=== PATIENT | male | born 2000 | race Caucasian/White ===

== ENCOUNTER 2019-01-21 12:14 | Inpatient (IN) ==
[2019-01-21 13:56] LABS: Basophils # (auto) 0.06 K/uL (0-0.2); Basophils % (auto) 0.4 %; Eosinophils # (auto) 0.02 K/uL (0-0.5); Eosinophils % (auto) 0.1 %; Hematocrit (blood only) 45.3 % (42-52); Hemoglobin 15.2 g/dL (14.0-18.0); Immature Granulocytes # (auto) 0.02 K/uL (0.00-0.02); Immature Granulocytes % (auto) 0.1 %; Lymphocytes # (auto) 1.36 K/uL (1.2-3.4); Lymphocytes % (auto) 9.8 %; Mean Corpuscular Hemoglobin 28.8 pg (25-34); Mean Corpuscular Hgb Conc 33.6 g/dL (32-36); Mean Platelet Volume 10.4 fL (7.4-10.4); Monocytes # (auto) 0.96 K/uL (0.11-0.59); Monocytes % (auto) 6.9 %; Neutrophils # (auto) 11.45 K/uL (1.4-6.5); Neutrophils % (auto) 82.7 %; Platelet Count 183 K/uL (130-400); RDW Coefficient of Variation 12.8 % (11.5-14.5); RDW Standard Deviation 40.6 fL (36.4-46.3); Red Blood Count 5.27 M/uL (4.7-6.1); White Blood Count 13.87 K/uL (4.8-10.8)
[2019-01-21] MEDS ORDERED: DiphenhydrAMINE HCL 50 MG/ML VIAL IV STA (14:13)
[2019-01-21] MEDS ORDERED: PROCHLORPERAZINE 5 MG/ML 2 ML VIAL IV STA (14:13)
[2019-01-21] MEDS ORDERED: SODIUM CHLORIDE 0.9% 1000ML 1,000 ML IV ONE ×2 (14:13→15:22)
[2019-01-21 14:15] LABS: Albumin Level 3.7 gm/dl (3.4-5.0); BUN Creatinine Ratio 8.8 (10-20); Calcium 9.5 mg/dl (8.5-10.1); Creatinine Clr Calc Pharmacy 103.2 ml/min; Potassium 3.9 mmol/L (3.5-5.1)
[2019-01-21 14:17] LABS: Bilirubin,Total 0.8 mg/dl (0.2-1); Globulin 3.6 gm/dl (2.5-4.0); Total Protein 7.4 gm/dl (6.4-8.2)
--- NOTE | 2019-01-21 14:53 | CT Scan Report ---
CT head/brain wo con CLINICAL HISTORY: 18 years-old Male presenting with MATHEW eval for bleed. TECHNIQUE: Multidetector CT imaging of the head was performed without the use of intravenous contrast . IV contrast: None. One or more dose lowering techniques were used consistent with the principles of ALARA (as low as reasonably achievable), including automatic exposure control, mA or kV adjustment t o individual patient size, and/or use of iterative reconstruction. COMPARISON: None. CT DOSE (mGy.cm): The estimated cumulative dose is 614.27. FINDINGS: Distribution Supervisor topogram: Unremarkable. Ventricles and sulci normal in size. No hemorrhage. Brain parenchyma normal in appearance with preser joão stuart-white differentiation. No acute territorial infarct. No mass effect or midline shift. No ext ra-axial fluid collection. Paranasal sinuses and mastoid air cells clear. Calvarium intact. IMPRESSION: 1. No acute intracranial abnormality. Electronically signed by: Lobito Burdick M.D. 01/21/2019 2:52 PM
[2019-01-21] MEDS ORDERED: ACETAMINOPHEN 500 MG TAB PO STA (15:22)
[2019-01-21] MEDS ORDERED: MAGNESIUM SULFATE / D5W 1 GM/100 ML BAG IV ONE (15:22)
[2019-01-21 15:34] LABS: Lyme Ab IgG w/WB Rflx Negative (Negative)
[2019-01-21 15:37] LABS: Lyme Ab IgM w/WB Rflx Negative (Negative)
[2019-01-21 15:53] LABS: Total Protein CSF 41.4 mg/dl (15-45)
--- NOTE | 2019-01-21 15:55 | XRay Report ---
XR chest 2V PA/lateral HISTORY: 18 years-old Male fever eval for pna acute shortness breath with clinical concern for pneum onia. Acute headache COMPARISON: None available TECHNIQUE: PA and lateral views of the chest FINDINGS: Cardiomediastinal and hilar silhouettes are within normal limits. No pneumothorax, pleural effusion, focal airspace consolidation or overt pulmonary edema. Bones of the chest appear grossly intact. Chol ecystectomy. IMPRESSION: No acute process. The above report was generated using voice recognition software. It may contain grammatical, syntax o r spelling errors. Electronically signed by: Winston Corral M.D. 01/21/2019 3:53 PM
[2019-01-21 16:14] LABS: Appearance CSF Clear; CSF Count Tube # 3; CSF Xanthrochromic No xanthochromia; Color CSF Colorless; Red Blood Cell CSF (A) 0 /uL (0-); Red Blood Cell CSF (B) 0 /uL (0-)
[2019-01-21 16:16] LABS: White Blood Cell CSF (A) 16 /uL (0-5); White Blood Cell CSF (B) 13 /uL (0-5)
[2019-01-21] MEDS ORDERED: cefTRIAXone SODIUM 2,000 MG/70 ML BAG IV STA (16:25)
[2019-01-21] MEDS ORDERED: DEXAMETHASONE SOD INJ 4 MG/ML VIAL IV STA (16:33)
--- NOTE | 2019-01-21 17:26 | History & Physical Report ---
Date of Service January 21, 2019 Assessment & Plan (1) Meningitis: Patient with headache, neck stiffness, subjective fever and leukocytosis. LP performed in ER with elevated WBCs, normal protein/glucose, Gram stain negative for organisms. Patient is afebrile, hemodynamically stable, non-toxic in appearance, no neurologic deficits. Suspect viral etiology. He was given Dexamethasone and Ceftriaxone in ER -Will give one dose of Vancomycin -Will hold additional antibiotics for now -IVF - NSS at 125mL/hr x 2 liters -ID consultation - assistance appreciated -Tylenol PRN pain F/E/N - NSS at 125mL/hr x 2 liters, electrolytes WNL, Regular diet as tolerated Ppx - Low risk for DVT Code - Full Dispo - Admit to medical floor Present on Admission?: Yes History of Present Illness Chief Complaint: headache Primary Care Provider: NO PCP Enrrique Busby is a 18yo C male with no significant past medical history presenting with headache - severe, constant x 3 days associated with neck stiffness, fever, photophobia. He denies visual changes, hearing loss, seizure, numbness/tingling/weakness. No head trauma. No recent travel. He was recently treated for strep throat. No additional complaints - no SOB/cough/abdominal pain/nausea/vomiting/diarrhea/constipation/rash. On arrival to the ER he was found to be afebrile, HD stable. He had an LP performed by the ER attending which showed clear, colorless CSF, 16 WBCs, normal glucose and protein. No RBCs or xanthrochromia. Lyme and flu negative. Gram stain with no organisms. ER Course: Tylenol, Ceftriaxone, Dexamethasone, Benadryl, Magnesium, Prochlorperazine, NSS Allergies Allergy/AdvReac Type Severity Reaction Status Date / Time No Known Allergies Allergy Unverified 01/21/19 16:03 Home Medications Home Medications Medication Instructions Recorded Confirmed Type ibuprofen 400 mg PO Q6H 01/21/19 01/21/19 History Past Med/Surg History Medical History No significant past medical history Surgical History No pertinent past surgical history Family History Other Hypertension Social History Feels Safe at Home: Yes Smoking Status: Never smoker Hx Alcohol Use: Yes Hx Substance Use: No Review of Systems Review of Systems: All systems reviewed & are unremarkable except as noted in HPI & below Physical Exam Physical Exam: General: patient resting comfortably, NAD, non-toxic in appearance, AA&O x 4 Skin: warm, dry, intact, no rashes or lesions HEENT: NC/AT, PERRL, +Photophobia, EOMI, anicteric sclera, conjunctiva without injection, external ear normal to inspection and nontender, nares patent, moist mucus membranes, dentition intact, no oropharyngeal lesions, +Neck stiffness, trachea midline, no LAD, no thyromegaly, no JVD Heart: +S1/S2, regular, no m/r/g Lungs: equal air entry bilaterally, no rales/rhonchi/wheezes Abd: +BS, soft, NT/ND, no masses/organomegaly/ascites Ext: warm, 2+ pulses in UE/LE bilaterally, no clubbing/cyanosis or edema Neuro: nonfocal, patient AA&O x 4, speech intact, no facial droop, moving all extremities on command with equal strength 5/5 Results & Data Vital Signs (Past 12 Hours) Vital Signs Temp Pulse Resp BP Pulse Ox 01/21/19 16:00 75 14 124/68 97 01/21/19 15:45 68 16 96 01/21/19 15:43 70 14 123/72 98 01/21/19 15:00 73 15 99 01/21/19 14:30 76 11 L 100 01/21/19 14:27 91 H 12 131/71 99 01/21/19 12:29 36.7 C 87 20 127/74 97 Laboratory Results Lab Results 01/21/19 01/21/19 01/21/19 Range/Units 13:47 13:47 13:47 WBC 13.87 H (4.8-10.8) K/uL RBC 5.27 (4.7-6.1) M/uL Hgb 15.2 (14.0-18.0) g/dL Hct 45.3 (42-52) % MCV 86.0 (80-100) fL MCH 28.8 (25-34) pg MCHC 33.6 (32-36) g/dL RDW Std Deviation 40.6 (36.4-46.3) fL RDW Coeff of Tamir 12.8 (11.5-14.5) % Plt Count 183 (130-400) K/uL MPV 10.4 (7.4-10.4) fL Immature Gran % (Auto) 0.1 % Neut % (Auto) 82.7 % Lymph % (Auto) 9.8 % [place] % (Auto) 6.9 % Eos % (Auto) 0.1 % Baso % (Auto) 0.4 % Immature Gran # (Auto) 0.02 (0.00-0.02) K/uL Neut # (Auto) 11.45 H (1.4-6.5) K/uL Lymph # (Auto) 1.36 (1.2-3.4) K/uL [place] # (Auto) 0.96 H (0.11-0.59) K/uL Eos # (Auto) 0.02 (0-0.5) K/uL Baso # (Auto) 0.06 (0-0.2) K/uL ESR 33 H (0-14) mm/hr Sodium 137 (136-145) mmol/L Potassium 3.9 (3.5-5.1) mmol/L Chloride 103 (98-107) mmol/L Carbon Dioxide 29 (21-32) mmol/L Anion Gap 5.0 (3-11) BUN 12 (7-18) mg/dl Creatinine 1.35 (0.6-1.4) mg/dl Est Cr Clr Drug Dosing 103.2 ml/min Est GFR ( Amer) 87.0 Est GFR (Non-Af Amer) 75.0 BUN/Creatinine Ratio 8.8 L (10-20) Glucose 95 (70-99) mg/dl Calcium 9.5 (8.5-10.1) mg/dl Total Bilirubin 0.8 (0.2-1) mg/dl AST 21 (15-37) U/L ALT 90 H (12-78) U/L Alkaline Phosphatase 118 H (45-117) U/L Total Protein 7.4 (6.4-8.2) gm/dl Albumin 3.7 (3.4-5.0) gm/dl Globulin 3.6 (2.5-4.0) gm/dl Albumin/Globulin Ratio 1.0 (0.9-2) CSF Appearance CSF Color Xanthrochromic CSF WBC (0-5) /uL CSF RBC (0-) /uL CSF Cell Count Tube # CSF Mononuclear WBCs % CSF Polynuclear WBCs % CSF Chemistry Tube # CSF Glucose (40-70) mg/dl CSF Total Protein (15-45) mg/dl Lyme Disease IgG Ab (Negative) Lyme Disease IgM Ab (Negative) Influenza Type A Ag (Neg) Influenza Type B Ag (Neg) 01/21/19 01/21/19 01/21/19 Range/Units 14:27 14:31 15:20 WBC (4.8-10.8) K/uL RBC (4.7-6.1) M/uL Hgb (14.0-18.0) g/dL Hct (42-52) % MCV (80-100) fL MCH (25-34) pg MCHC (32-36) g/dL RDW Std Deviation (36.4-46.3) fL RDW Coeff of Tamir (11.5-14.5) % Plt Count (130-400) K/uL MPV (7.4-10.4) fL Immature Gran % (Auto) % Neut % (Auto) % Lymph % (Auto) % [place] % (Auto) % Eos % (Auto) % Baso % (Auto) % Immature Gran # (Auto) (0.00-0.02) K/uL Neut # (Auto) (1.4-6.5) K/uL Lymph # (Auto) (1.2-3.4) K/uL [place] # (Auto) (0.11-0.59) K/uL Eos # (Auto) (0-0.5) K/uL Baso # (Auto) (0-0.2) K/uL ESR (0-14) mm/hr Sodium (136-145) mmol/L Potassium (3.5-5.1) mmol/L Chloride (98-107) mmol/L Carbon Dioxide (21-32) mmol/L Anion Gap (3-11) BUN (7-18) mg/dl Creatinine (0.6-1.4) mg/dl Est Cr Clr Drug Dosing ml/min Est GFR ( Amer) Est GFR (Non-Af Amer) BUN/Creatinine Ratio (10-20) Glucose (70-99) mg/dl Calcium (8.5-10.1) mg/dl Total Bilirubin (0.2-1) mg/dl AST (15-37) U/L ALT (12-78) U/L Alkaline Phosphatase (45-117) U/L Total Protein (6.4-8.2) gm/dl Albumin (3.4-5.0) gm/dl Globulin (2.5-4.0) gm/dl Albumin/Globulin Ratio (0.9-2) CSF Appearance Clear CSF Color Colorless Xanthrochromic No xanthochromia CSF WBC 16 H* (0-5) /uL CSF RBC 0 (0-) /uL CSF Cell Count Tube # 3 CSF Mononuclear WBCs 95.0 % CSF Polynuclear WBCs 5.0 % CSF Chemistry Tube # CSF Glucose (40-70) mg/dl CSF Total Protein (15-45) mg/dl Lyme Disease IgG Ab Negative (Negative) Lyme Disease IgM Ab Negative (Negative) Influenza Type A Ag Neg for Influ A (Neg) Influenza Type B Ag Neg for Influ B (Neg) 01/21/19 Range/Units 15:20 WBC (4.8-10.8) K/uL RBC (4.7-6.1) M/uL Hgb (14.0-18.0) g/dL Hct (42-52) % MCV (80-100) fL MCH (25-34) pg MCHC (32-36) g/dL RDW Std Deviation (36.4-46.3) fL RDW Coeff of Tamir (11.5-14.5) % Plt Count (130-400) K/uL MPV (7.4-10.4) fL Immature Gran % (Auto) % Neut % (Auto) % Lymph % (Auto) % [place] % (Auto) % Eos % (Auto) % Baso % (Auto) % Immature Gran # (Auto) (0.00-0.02) K/uL Neut # (Auto) (1.4-6.5) K/uL Lymph # (Auto) (1.2-3.4) K/uL [place] # (Auto) (0.11-0.59) K/uL Eos # (Auto) (0-0.5) K/uL Baso # (Auto) (0-0.2) K/uL ESR (0-14) mm/hr Sodium (136-145) mmol/L Potassium (3.5-5.1) mmol/L Chloride (98-107) mmol/L Carbon Dioxide (21-32) mmol/L Anion Gap (3-11) BUN (7-18) mg/dl Creatinine (0.6-1.4) mg/dl Est Cr Clr Drug Dosing ml/min Est GFR ( Amer) Est GFR (Non-Af Amer) BUN/Creatinine Ratio (10-20) Glucose (70-99) mg/dl Calcium (8.5-10.1) mg/dl Total Bilirubin (0.2-1) mg/dl AST (15-37) U/L ALT (12-78) U/L Alkaline Phosphatase (45-117) U/L Total Protein (6.4-8.2) gm/dl Albumin (3.4-5.0) gm/dl Globulin (2.5-4.0) gm/dl Albumin/Globulin Ratio (0.9-2) CSF Appearance CSF Color Xanthrochromic CSF WBC (0-5) /uL CSF RBC (0-) /uL CSF Cell Count Tube # CSF Mononuclear WBCs % CSF Polynuclear WBCs % CSF Chemistry Tube # 1 CSF Glucose 56 (40-70) mg/dl CSF Total Protein 41.4 (15-45) mg/dl Lyme Disease IgG Ab (Negative) Lyme Disease IgM Ab (Negative) Influenza Type A Ag (Neg) Influenza Type B Ag (Neg) Diagnostic Findings XR chest 2V PA/lateral HISTORY: 18 years-old Male fever eval for pna acute shortness breath with clinical concern for pneumonia. Acute headache COMPARISON: None available TECHNIQUE: PA and lateral views of the chest FINDINGS: Cardiomediastinal and hilar silhouettes are within normal limits. No pneumothorax, pleural effusion, focal airspace consolidation or overt pulmonary edema. Bones of the chest appear grossly intact. Cholecystectomy. IMPRESSION: No acute process. The above report was generated using voice recognition software. It may contain grammatical, syntax or spelling errors. Electronically signed by: Winston Corral M.D. 01/21/2019 3:53 PM Dictated: 01/21/191551 Transcribed: 01/21/191551 CT head/brain wo con CLINICAL HISTORY: 18 years-old Male presenting with MATHEW eval for bleed. TECHNIQUE: Multidetector CT imaging of the head was performed without the use of intravenous contrast. IV contrast: None. One or more dose lowering techniques were used consistent with the principles of ALARA (as low as reasonably achievable), including automatic exposure control, mA or kV adjustment to individual patient size, and/or use of iterative reconstruction. COMPARISON: None. CT DOSE (mGy.cm): The estimated cumulative dose is 614.27. FINDINGS: High Energy Forming Equipment Operator topogram: Unremarkable. Ventricles and sulci normal in size. No hemorrhage. Brain parenchyma normal in appearance with preserved stuart-white differentiation. No acute territorial infarct. No mass effect or midline shift. No extra-axial fluid collection. Paranasal sinuses and mastoid air cells clear. Calvarium intact. IMPRESSION: 1. No acute intracranial abnormality. Electronically signed by: Lobito Burdick M.D. 01/21/2019 2:52 PM Dictated: 01/21/19 1417 Transcribed: 01/21/19 1417 Code Status & VTE Plan Code Status FULL VTE Prophylaxis Plan VTE Prophylaxis will be ordered: Yes PG Care Time/CCT Total # of Minutes Spent Total Time Spent with Patient: Total time spent is greater than 50% in coordination of care (as documented) at patient's floor/unit and/or counseling patient:
[2019-01-21] MEDS ORDERED: VANCOMYCIN CONSULT ACTIVE PRN (21:15)
[2019-01-21] MEDS ORDERED: ACETAMINOPHEN 325 MG TAB PO PRN (21:15)
[2019-01-21] MEDS ORDERED: IBUPROFEN 200 MG TAB PO PRN (21:15)
[2019-01-21] MEDS ORDERED: ONDANSETRON INJ 2 MG/ML 2 ML VIAL IV PRN (21:15)
--- NOTE | 2019-01-21 21:33 | Emergency Department Note ---
Entered by Noris Potts acting as a scribe for Sylvester Avalos MD History of Present Illness General Chief complaint: Headache Stated complaint: SEVERE HEADACHE, STIFF NECK, SENT FROM [facility] Time Seen by Provider: 01/21/19 14:00 Source: patient History of Present Illness Onset (ago): day(s) 2 Location: head Pain Consistency: + constant Maximum Pain Intensity: 7 Quality: + stabbing and + other (thumping) Relieved By: + other (lying flat ) Exacerbated By: + movement and + other (light) Associated symptoms: + fever/chills and + other (positive neck stiffness; negative runny nose; negative sore throat); no cough and no nausea/vomiting Treatments prior to arrival: other (Tylenol ) The patient is a 18 year old male with a no significant PMHx who presents to the Emergency Room with complaints of constant headache that began approximately 2 mornings prior to arrival. He states that he woke up with this headache in the front of his head, and states that it has remained unchanged since this time. The patient states that this is the worst headache of his life, and describes this as a "thumping" at rest and stabbing feeling with movement. He states that his headache is exacerbated by light and movement. It is located in the frontal region. The patient states that lying flat somewhat relieves his symptoms. The patient states that he has had neck stiffness during this time. He reports having an intermittent subjective fever. The patient states that he took Tylenol for his symptoms, but states that this did not relieve his symptoms. He denies vomiting, runny nose, cough, and sore throat. The patient states that he has a history of headaches, but denies a personal and family history of migraines. The patient denies falling or hitting his head recently. The patient denies any recent tick bites. He states that he did not get a flu shot this year. The patient states that his vaccinations are up to date. Home Medications Home Medications Medication Instructions Recorded Confirmed Type ibuprofen 400 mg PO Q6H 01/21/19 01/21/19 History Allergies Allergy/AdvReac Type Severity Reaction Status Date / Time No Known Allergies Allergy Unverified 01/21/19 16:03 Past Med/Surg History Medical History No significant past medical history Surgical History No pertinent past surgical history Family History Other Hypertension Social History Preferred Language: Kittitian Communication Ability: Effective Credit Risk Management Director Required: No Beliefs That Will Affect Care: None Current Living Situation: Other Current Living Situation Comment: lives with roomates Other Information That Helps Us Care for You: No Feels Safe at Home: Yes Safety Concerns: Feels Safe At This Time Smoking Status: Never smoker Hx Alcohol Use: Yes Alcohol type: beer Hx Substance Use: No Review of Systems See HPI for pertinent positives & negatives. and A total of 10 systems reviewed and were otherwise negative Physical Exam Vital Signs Vital Signs - 24 hr 01/21/19 12:29 01/21/19 14:27 01/21/19 14:30 Temperature 36.7 C Temperature Source Oral Sepsis Recent Fever Within 48 Hours Yes Sepsis Action Taken by Nursing No Action Required Pulse Rate 87 91 H 76 Pulse Rate from SpO2 Sensor 90 76 Respiratory Rate 20 12 11 L Respiratory Effort / Characteristics Non-Labored Spontaneous Respiratory Depth Normal Blood Pressure 127/74 131/71 Blood Pressure Mean 91 91 Pulse Oximetry 97 99 100 Oxygen Delivery Method Room Air Room Air Room Air 01/21/19 15:00 01/21/19 15:43 01/21/19 15:45 Temperature Temperature Source Sepsis Recent Fever Within 48 Hours Sepsis Action Taken by Nursing Pulse Rate 73 70 68 Pulse Rate from SpO2 Sensor Respiratory Rate 15 14 16 Respiratory Effort / Characteristics Respiratory Depth Blood Pressure 123/72 Blood Pressure Mean 89 Pulse Oximetry 99 98 96 Oxygen Delivery Method Room Air Room Air Room Air 01/21/19 16:00 01/21/19 16:30 01/21/19 17:00 Temperature Temperature Source Sepsis Recent Fever Within 48 Hours Sepsis Action Taken by Nursing Pulse Rate 75 78 93 H Pulse Rate from SpO2 Sensor Respiratory Rate 14 14 15 Respiratory Effort / Characteristics Respiratory Depth Blood Pressure 124/68 130/79 117/55 L Blood Pressure Mean 86 96 75 Pulse Oximetry 97 98 96 Oxygen Delivery Method Room Air Room Air Room Air 01/21/19 17:30 Temperature Temperature Source Sepsis Recent Fever Within 48 Hours Sepsis Action Taken by Nursing Pulse Rate 89 Pulse Rate from SpO2 Sensor Respiratory Rate 22 Respiratory Effort / Characteristics Respiratory Depth Blood Pressure 130/65 Blood Pressure Mean 86 Pulse Oximetry 97 Oxygen Delivery Method Room Air Constitutional: Vital signs reviewed. Eyes: Pupils are equal round reactive to light. Conjunctiva are noninjected. ENT: Pharynx is clear without erythema or exudate. Mucous membranes are moist. Neck supple without meningeal signs. Respiratory: Clear to auscultation bilaterally. Breath sounds are equal bila terally. Cardiovascular: Regular rate and rhythm. No rubs or gallops. GI: Soft, nondistended and nontender. Bowel sounds are present. Musculoskeletal: No peripheral edema. No lower extremity tenderness. Integumentary: No cyanosis. Neurological: The patient is awake and alert. Cranial nerves II-XII are intact. Motor is 5 out of 5 all extremities. Sensation is intact to light touch all extremities. Normal speech. No pronator drift. No limb ataxia. Negative Kernig and Brudzinski sign. Psychiatric: Normal affect. Procedures Lumbar Puncture Time Out Performed: Yes Patient Position: upright Skin Prep: Povidone-Iodine 1% Local Anesthetic: lidocaine 1% Amount of anesthesia used (mL): 4 Spinal Needle Gauge: 20G Interspace Used: L4-L5 Fluid Initially Obtained: clear Complications: none Course 1403: Past medical records reviewed. The patient was evaluated in room C6. A co mplete history and physical exam was performed. 1455: I discussed management as well as risks and benefits of a lumbar puncture with the patient's mother and aunt per the patient's request. The patient's aunt is present in the room and his mother was on speaker phone. 1509: A lumbar puncture was performed without complications. 1633: I spoke to the patient and his family about the lumbar puncture results. We discussed the treatment plan and they are in agreement with this. [facility] for [facility]. [facility] for the patient. Administered Medications Discontinued Medications Acetaminophen (Tylenol) 1,000 mg PO NOW STA Stop: 01/21/19 15:23 Last Admin: 01/21/19 15:42 Dose: 1,000 mg Documented by: [id number] Dexamethasone (Decadron) 10 mg IV NOW STA Stop: 01/21/19 16:34 Last Admin: 01/21/19 16:59 Dose: 10 mg Documented by: [id number] Diphenhydramine HCl (Benadryl) 25 mg IV NOW STA Stop: 01/21/19 14:14 Last Admin: 01/21/19 14:25 Dose: 25 mg Documented by: [id number] Sodium Chloride (Nss 1000ml) 1,000 mls @ 999 mls/hr IV .Q1H1M ONE Stop: 01/21/19 15:13 Last Infusion: 01/21/19 15:17 Dose: 0 mls/hr Documented by: [id number] Admin: 01/21/19 14:25 Dose: 999 mls/hr Documented by: [id number] Magnesium Sulfate/Dextrose (Magnesium Sulfate / D5w) 1 gm in 100 mls @ 100 mls/hr IV ONE ONE Stop: 01/21/19 16:21 Last Infusion: 01/21/19 16:59 Dose: 0 mls/hr Documented by: [id number] Admin: 01/21/19 15:42 Dose: 100 mls/hr Documented by: [id number] Sodium Chloride (Nss 1000ml) 1,000 mls @ 999 mls/hr IV .Q1H1M ONE Stop: 01/21/19 16:22 Last Infusion: 01/21/19 16:43 Dose: 0 mls/hr Documented by: [id number] Admin: 01/21/19 15:42 Dose: 999 mls/hr Documented by: [id number] Ceftriaxone Sodium (Rocephin) 2,000 mg in 70 mls @ 140 mls/hr IV NOW STA Stop: 01/21/19 16:54 Last Infusion: 01/21/19 17:29 Dose: 0 mls/hr Documented by: [id number] Admin: 01/21/19 16:59 Dose: 140 mls/hr Documented by: [id number] Prochlorperazine (Compazine) 10 mg IV NOW STA Stop: 01/21/19 14:14 Last Admin: 01/21/19 14:25 Dose: 10 mg Documented by: [id number] Medical Decision Making Differential Diagnosis Differential diagnoses include influenza, lyme disease, meningitis, migraine headache, ICH, cerebral aneurysm, and others were considered. Medical Records Attestation: I reviewed the patient's medical records. (The patient has no prior visits. ) Home Medications Current Medication List: was personally reviewed by me Laboratory Data Attestation: I reviewed the patient's lab results. Result diagrams: 01/21/19 13:47 01/21/19 13:47 Lab Results 01/21/19 01/21/19 01/21/19 Range/Units 13:47 13:47 13:47 WBC 13.87 H (4.8-10.8) K/uL RBC 5.27 (4.7-6.1) M/uL Hgb 15.2 (14.0-18.0) g/dL Hct 45.3 (42-52) % MCV 86.0 (80-100) fL MCH 28.8 (25-34) pg MCHC 33.6 (32-36) g/dL RDW Std Deviation 40.6 (36.4-46.3) fL RDW Coeff of Tamir 12.8 (11.5-14.5) % Plt Count 183 (130-400) K/uL MPV 10.4 (7.4-10.4) fL Immature Gran % (Auto) 0.1 % Neut % (Auto) 82.7 % Lymph % (Auto) 9.8 % [place] % (Auto) 6.9 % Eos % (Auto) 0.1 % Baso % (Auto) 0.4 % Immature Gran # (Auto) 0.02 (0.00-0.02) K/uL Neut # (Auto) 11.45 H (1.4-6.5) K/uL Lymph # (Auto) 1.36 (1.2-3.4) K/uL [place] # (Auto) 0.96 H (0.11-0.59) K/uL Eos # (Auto) 0.02 (0-0.5) K/uL Baso # (Auto) 0.06 (0-0.2) K/uL ESR 33 H (0-14) mm/hr Sodium 137 (136-145) mmol/L Potassium 3.9 (3.5-5.1) mmol/L Chloride 103 (98-107) mmol/L Carbon Dioxide 29 (21-32) mmol/L Anion Gap 5.0 (3-11) BUN 12 (7-18) mg/dl Creatinine 1.35 (0.6-1.4) mg/dl Est Cr Clr Drug Dosing 103.2 ml/min Est GFR ( Amer) 87.0 Est GFR (Non-Af Amer) 75.0 BUN/Creatinine Ratio 8.8 L (10-20) Glucose 95 (70-99) mg/dl Calcium 9.5 (8.5-10.1) mg/dl Total Bilirubin 0.8 (0.2-1) mg/dl AST 21 (15-37) U/L ALT 90 H (12-78) U/L Alkaline Phosphatase 118 H (45-117) U/L Total Protein 7.4 (6.4-8.2) gm/dl Albumin 3.7 (3.4-5.0) gm/dl Globulin 3.6 (2.5-4.0) gm/dl Albumin/Globulin Ratio 1.0 (0.9-2) CSF Appearance CSF Color Xanthrochromic CSF WBC (0-5) /uL CSF RBC (0-) /uL CSF Cell Count Tube # CSF Mononuclear WBCs % CSF Polynuclear WBCs % CSF Chemistry Tube # CSF Glucose (40-70) mg/dl CSF Total Protein (15-45) mg/dl Lyme Disease IgG Ab (Negative) Lyme Disease IgM Ab (Negative) Influenza Type A Ag (Neg) Influenza Type B Ag (Neg) 01/21/19 01/21/19 01/21/19 Range/Units 14:27 14:31 15:20 WBC (4.8-10.8) K/uL RBC (4.7-6.1) M/uL Hgb (14.0-18.0) g/dL Hct (42-52) % MCV (80-100) fL MCH (25-34) pg MCHC (32-36) g/dL RDW Std Deviation (36.4-46.3) fL RDW Coeff of Tamir (11.5-14.5) % Plt Count (130-400) K/uL MPV (7.4-10.4) fL Immature Gran % (Auto) % Neut % (Auto) % Lymph % (Auto) % [place] % (Auto) % Eos % (Auto) % Baso % (Auto) % Immature Gran # (Auto) (0.00-0.02) K/uL Neut # (Auto) (1.4-6.5) K/uL Lymph # (Auto) (1.2-3.4) K/uL [place] # (Auto) (0.11-0.59) K/uL Eos # (Auto) (0-0.5) K/uL Baso # (Auto) (0-0.2) K/uL ESR (0-14) mm/hr Sodium (136-145) mmol/L Potassium (3.5-5.1) mmol/L Chloride (98-107) mmol/L Carbon Dioxide (21-32) mmol/L Anion Gap (3-11) BUN (7-18) mg/dl Creatinine (0.6-1.4) mg/dl Est Cr Clr Drug Dosing ml/min Est GFR ( Amer) Est GFR (Non-Af Amer) BUN/Creatinine Ratio (10-20) Glucose (70-99) mg/dl Calcium (8.5-10.1) mg/dl Total Bilirubin (0.2-1) mg/dl AST (15-37) U/L ALT (12-78) U/L Alkaline Phosphatase (45-117) U/L Total Protein (6.4-8.2) gm/dl Albumin (3.4-5.0) gm/dl Globulin (2.5-4.0) gm/dl Albumin/Globulin Ratio (0.9-2) CSF Appearance Clear CSF Color Colorless Xanthrochromic No xanthochromia CSF WBC 16 H* (0-5) /uL CSF RBC 0 (0-) /uL CSF Cell Count Tube # 3 CSF Mononuclear WBCs 95.0 % CSF Polynuclear WBCs 5.0 % CSF Chemistry Tube # CSF Glucose (40-70) mg/dl CSF Total Protein (15-45) mg/dl Lyme Disease IgG Ab Negative (Negative) Lyme Disease IgM Ab Negative (Negative) Influenza Type A Ag Neg for Influ A (Neg) Influenza Type B Ag Neg for Influ B (Neg) 01/21/19 Range/Units 15:20 WBC (4.8-10.8) K/uL RBC (4.7-6.1) M/uL Hgb (14.0-18.0) g/dL Hct (42-52) % MCV (80-100) fL MCH (25-34) pg MCHC (32-36) g/dL RDW Std Deviation (36.4-46.3) fL RDW Coeff of Tamir (11.5-14.5) % Plt Count (130-400) K/uL MPV (7.4-10.4) fL Immature Gran % (Auto) % Neut % (Auto) % Lymph % (Auto) % [place] % (Auto) % Eos % (Auto) % Baso % (Auto) % Immature Gran # (Auto) (0.00-0.02) K/uL Neut # (Auto) (1.4-6.5) K/uL Lymph # (Auto) (1.2-3.4) K/uL [place] # (Auto) (0.11-0.59) K/uL Eos # (Auto) (0-0.5) K/uL Baso # (Auto) (0-0.2) K/uL ESR (0-14) mm/hr Sodium (136-145) mmol/L Potassium (3.5-5.1) mmol/L Chloride (98-107) mmol/L Carbon Dioxide (21-32) mmol/L Anion Gap (3-11) BUN (7-18) mg/dl Creatinine (0.6-1.4) mg/dl Est Cr Clr Drug Dosing ml/min Est GFR ( Amer) Est GFR (Non-Af Amer) BUN/Creatinine Ratio (10-20) Glucose (70-99) mg/dl Calcium (8.5-10.1) mg/dl Total Bilirubin (0.2-1) mg/dl AST (15-37) U/L ALT (12-78) U/L Alkaline Phosphatase (45-117) U/L Total Protein (6.4-8.2) gm/dl Albumin (3.4-5.0) gm/dl Globulin (2.5-4.0) gm/dl Albumin/Globulin Ratio (0.9-2) CSF Appearance CSF Color Xanthrochromic CSF WBC (0-5) /uL CSF RBC (0-) /uL CSF Cell Count Tube # CSF Mononuclear WBCs % CSF Polynuclear WBCs % CSF Chemistry Tube # 1 CSF Glucose 56 (40-70) mg/dl CSF Total Protein 41.4 (15-45) mg/dl Lyme Disease IgG Ab (Negative) Lyme Disease IgM Ab (Negative) Influenza Type A Ag (Neg) Influenza Type B Ag (Neg) Imaging Data Radiologist's Impression: Radiology results as stated below per my review and the radiologist's interpretation: CT head/brain wo con CLINICAL HISTORY: 18 years-old Male presenting with MATHEW eval for bleed. TECHNIQUE: Multidetector CT imaging of the head was performed without the use of intravenous contrast. IV contrast: None. One or more dose lowering techniques were used consistent with the principles of ALARA (as low as reasonably achievable), including automatic exposure control, mA or kV adjustment to individual patient size, and/or use of iterative reconstruction. COMPARISON: None. CT DOSE (mGy.cm): The estimated cumulative dose is 614.27. FINDINGS: Family Medicine Physician Assistant topogram: Unremarkable. Ventricles and sulci normal in size. No hemorrhage. Brain parenchyma normal in appearance with preserved stuart-white differentiation. No acute territorial infarct. No mass effect or midline shift. No extra-axial fluid collection. Paranasal sinuses and mastoid air cells clear. Calvarium intact. IMPRESSION: 1. No acute intracranial abnormality. Electronically signed by: Lobito Burdick M.D. 01/21/2019 2:52 PM XR chest 2V PA/lateral HISTORY: 18 years-old Male fever eval for pna acute shortness breath with clinical concern for pneumonia. Acute headache COMPARISON: None available TECHNIQUE: PA and lateral views of the chest FINDINGS: Cardiomediastinal and hilar silhouettes are within normal limits. No pneumothorax, pleural effusion, focal airspace consolidation or overt pulmonary edema. Bones of the chest appear grossly intact. Cholecystectomy. IMPRESSION: No acute process. The above report was generated using voice recognition software. It may contain grammatical, syntax or spelling errors. Electronically signed by: Winston Corral M.D. 01/21/2019 3:53 PM Blood Pressure Blood Pressure Findings: Elevated blood pressure Blood Pressure Disposition: further management by hospitalist SABA Berkowitz I did evaluate the patient as noted above. The patient is presenting with the worst headache of his life with neck stiffness and intermittent subjective fevers. I was concerned about possible meningitis or subarachnoid hemorrhage. After initial evaluation I did discuss risks and benefits of lumbar puncture including worsening headache, infection, bleeding and neurologic consequences. He was agreeable with the lumbar puncture. IV access was established. The patient was placed on a continuous color television console monitor. I did treat him with IV Compazine, normal saline and Benadryl. I did order and personally reviewed the images of the patient's chest x-ray as described above. There is no evidence of pneumonia. I did order and review the patient's blood work as noted in the electronic medical record. His white blood cell count is elevated. Lyme testing is negative. Rapid flu testing is negative. I did order a CT of the head. I did review the images myself as well as the radiology report as described above. There is no evidence of intracranial hemorrhage. I did reassess the patient. He states he has no change in his headache. He was given magnesium IV. He is also given Tylenol. I did discuss the test results with the patient's aunt and mother per his request. I did describe risks and benefits of lumbar puncture with them will swell. They were agreeable to the lumbar puncture. I did perform the lumbar puncture as described above. CSF results showed 16 WBCs but was otherwise negative. Gram stain was negative for organisms. He likely has an aseptic meningitis but I cannot rule out an early bacterial meningitis and so I did recommend hospitalization for IV antibiotics and results of CSF cultures. I did treat him with 2 g of IV Rocephin. He is also given Decadron 10 mg IV. I did discuss the case with the hospitalist and case maker. I did offer stronger pain medications to the patient but he declined at this time. Impression & Plan Meningitis Discharge Plan Visit Data Chief Complaint: Headache Stated Complaint: SEVERE HEADACHE, STIFF NECK, SENT FROM [facility] ED Provider: Sylvester Avalos Discharge Problem: Meningitis Patient Disposition: Being Evaluated by Hospitalist Discharge Instructions Interventions: ED Discharge Assessment Last Done: 01/21/19 20:57 The jennifer's documentation has been prepared under my direction and personally reviewed by me in its entirety. I confirm that the note above accurately reflects all work, treatment, procedures, and medical decision making performed by me.
[2019-01-21] MEDS ORDERED: VANCOMYCIN HCL 2,000 MG in SODIUM CHLORIDE 0.9% 500 ML IV STA (21:39)
[2019-01-21] MEDS: SODIUM CHLORIDE 0.9% 1000ML 1,000 ML IV SCH (21:45)
[2019-01-22] MEDS: SODIUM CHLORIDE 0.9% 1000ML 1,000 ML IV SCH (05:55)
--- NOTE | 2019-01-22 08:52 | Infectious Disease Consult ---
Date of Consultation January 22, 2019 Assessment & Plan (1) Meningitis: 18-year-old previously healthy male with acute meningitis, most likely viral, enteroviral infection most likely. Would continue on antibiotics through today to ensure negative cultures, but hopefully can be discharged in the next day or so off antibiotics. Case discussed at length with patient and his mother and father. Will follow while in hospital. History of Present Illness Reason for Consultation: Meningitis Attending Physician: Ramonita Martines DO History of Present Illness 18-year-old previously healthy male was well until last week when he developed pharyngitis and diagnosed with streptococcal infection. Treated with antibiot ics, but 3 days ago developed the worst headache of his life associated with neck stiffness and photophobia. He came to the emergency department and underwent lumbar puncture with finding of mild pleocytosis consistent with a diagnosis of meningitis. Gram stain of the fluid was negative, cultures are no growth to date. Blood cultures have been negative as well. He is feeling significantly better this morning, denies any significant headache, no headache upon standing or walking, had no fever. Now with appetite and ate breakfast, taking fluids adequately. He denies any ill contacts. No other significant travel or exposure history. Allergies Allergy/AdvReac Type Severity Reaction Status Date / Time No Known Allergies Allergy Unverified 01/21/19 16:03 Home Medications Home Medications Medication Instructions Recorded Confirmed Type ibuprofen 400 mg PO Q6H 01/21/19 01/21/19 History Patient History Medical History No significant past medical history Surgical History No pertinent past surgical history Family History Other Hypertension Social History Preferred Language: Ghanaian Communication Ability: Effective Manager Trading Required: No Beliefs That Will Affect Care: None Current Living Situation: Other Current Living Situation Comment: lives with roomates Other Information That Helps Us Care for You: No Feels Safe at Home: Yes Safety Concerns: Feels Safe At This Time Smoking Status: Never smoker Hx Alcohol Use: Yes Alcohol type: beer Hx Substance Use: No Review of Systems Review of Systems: All systems reviewed & are unremarkable except as noted in HPI & below Physical Exam Constitutional: WD/WN, vitals as above comfortable; no acute distress Eyes: PERRL, conjunctivae normal, anicteric sclerae ENMT: external ear and nose normal, oropharynx normal Neck: trachea midline, no thyromegaly neck nontender Respiratory: normal respiratory effort, lungs clear to auscultation normal percussion; does not use accessory muscles Cardiovascular: Rate/Rhythm: regular rate and regular rhythm Heart Sounds: normal S1 and normal S2; no gallop, no murmur and no cardiac rub Vessels: normal peripheral pulses; no JVD Gastrointestinal (Abdomen): normal bowel sounds, soft, nontender, no hepatosplenomegaly Musculoskeletal: no cyanosis or clubbing, extremities motor strength 5/5 Spine: thoracic spine normal to inspection and lumbar spine normal to inspection; no cervical spinal tenderness Skin: no rashes, warm and dry normal turgor; no lesions Neurologic: patellar DTR's 2+ bilat, sensation intact no focal motor deficits Psychiatric: A+Ox3, euthymic affect Orientation: cooperative Lymphatic: no cervical or axillary lymphadenopathy no inguinal lymphadenopathy Results & Data Vital Signs (Past 12 Hours) Vital Signs Temp Pulse Resp BP Pulse Ox 01/22/19 07:11 36.4 C L 55 L 18 95/61 L 97 01/21/19 23:40 36.9 C 74 19 112/72 97 01/21/19 20:50 37.1 C 94 H 16 131/66 97 Laboratory Results Short CBC 01/21/19 Range/Units 13:47 WBC 13.87 H (4.8-10.8) K/uL Hgb 15.2 (14.0-18.0) g/dL Hct 45.3 (42-52) % Plt Count 183 (130-400) K/uL BMP 01/21/19 13:47 Sodium 137 Potassium 3.9 Chloride 103 Carbon Dioxide 29 BUN 12 Creatinine 1.35 Glucose 95 Calcium 9.5 Liver Function 01/21/19 Range/Units 13:47 Total Bilirubin 0.8 (0.2-1) mg/dl AST 21 (15-37) U/L ALT 90 H (12-78) U/L Alkaline Phosphatase 118 H (45-117) U/L Albumin 3.7 (3.4-5.0) gm/dl Diagnostic Findings Microbiology 01/21/19 15:20 Cerebral Spinal Fluid Gram Stain - Final CT head/brain wo con CLINICAL HISTORY: 18 years-old Male presenting with MATHEW eval for bleed. TECHNIQUE: Multidetector CT imaging of the head was performed without the use of intravenous contrast. IV contrast: None. One or more dose lowering techniques were used consistent with the principles of ALARA (as low as reasonably achievable), including automatic exposure control, mA or kV adjustment to individual patient size, and/or use of iterative reconstruction. COMPARISON: None. CT DOSE (mGy.cm): The estimated cumulative dose is 614.27. FINDINGS: Ice Cream Scooper topogram: Unremarkable. Ventricles and sulci normal in size. No hemorrhage. Brain parenchyma normal in appearance with preserved stuart-white differentiation. No acute territorial infarct. No mass effect or midline shift. No extra-axial fluid collection. Paranasal sinuses and mastoid air cells clear. Calvarium intact. IMPRESSION: 1. No acute intracranial abnormality. Electronically signed by: Lobito Burdick M.D. 01/21/2019 2:52 PM PG Care Time/CCT Total # of Minutes Spent Total Time Spent with Patient: Total time spent is greater than 50% in coordination of care (as documented) at patient's floor/unit and/or counseling patient:
[2019-01-22] MEDS ORDERED: VANCOMYCIN HCL 1,250 MG in SODIUM CHLORIDE 0.9% 250 ML IV ONE (09:15)
[2019-01-22] MEDS: cefTRIAXone SODIUM 2,000 MG in DEXTROSE 5% 50 ML IV SCH ×2 (09:45→22:36)
--- NOTE | 2019-01-22 11:05 | Pharmacy Report ---
Pharmacy Abx Initial Consult - Date of Service January 22, 2019 - Pharmacy Dosing Scope Date of Consult: 01/22/19 Consultation requested by: Dr. Ward Pharmacy is consulted to initiate vancomycin IV dosing therapy, order appropriate labs and adjust drug dose/frequency. - Subjective The patient is a 18 year old M admitted on 01/21/19 18:38. - Objective Height: 6 ft 3 in Weight: 83.6 kg Vital Signs (Past 12hrs): Vital Signs Temp Pulse Resp BP Pulse Ox 01/22/19 07:11 36.4 C L 55 L 18 95/61 L 97 01/21/19 23:40 36.9 C 74 19 112/72 97 Lab Results (24hrs): Laboratory Tests (24 Hours) 01/21/19 01/21/19 01/21/19 13:47 13:47 13:47 WBC 13.87 H Neut # (Auto) 11.45 H ESR 33 H Creatinine 1.35 Est Cr Clr Drug Dosing 103.2 Micro Results: 01/21/19 15:20 Gram Stain - Final Cerebral Spinal Fluid CSF Culture - Pending - Assessment & Plan Assessment 18 year old M receiving empiric vancomycin and ceftriaxone for possible bacterial meningitis. Patient presented on 01/21 with complaints of the worst headache of his life x 3 days with corresponding neck stiffness. He was recently treated for strep throat with cephalexin x 10 days. Afebrile on admission with mild leukocytosis. Elevated WBC in CSF with protein/glucose within normal limits. One time doses of vancomycin and ceftriaxone ordered last night. ID saw patient this morning and plan is to continue antibiotics at least through today to ensure negative cultures. Viral meningitis suspected per ID note. 01/21: CSF gram stain: no organisms seen, few WBCs Plan Vancomycin IV * Estimated PK Parameters: Vd 0.7 L/kg, Arcadio 0.090 hr-1, t1/2 7.7 hr * Loading dose: 2000 mg (24 mg/kg) * Maintenance dose: 1250 mg IV (15 mg/kg) every 8 hours * Goal trough level for meningitis : 15 to 20 mcg/mL * Trough level ordered for 01/23/19 @1030 Ceftriaxone IV * 2 g IV q12h appropriate based on meningitis indication Pharmacy will continue to follow and will adjust dose/frequency as necessary. Thank you.
--- NOTE | 2019-01-22 15:12 | Hospitalist Progress Note ---
Date of Service January 22, 2019 Assessment & Plan (1) Meningitis: Patient with headache, neck stiffness, subjective fever and leukocytosis. LP performed in ER with elevated WBCs, normal protein/glucose, Gram stain negative for organisms. Patient is afebrile, hemodynamically stable, non-toxic in appearance, no neurologic deficits. Continue to treat for viral meningitis. Viral culture pending. Lyme disease negative. Herpes simplex virus pending. Started acyclovir for viral meningitis. Also started ceftriaxone 2 g IV every 12 hours for possible bacterial meningitis empirically. Neurochecks every 4 hours. Blood cultures pending Cerebrospinal cultures pending He was given Dexamethasone and Ceftriaxone in ER Also 1 dose of vancomycin Tylenol PRN pain Tolerates regular diet DC IV fluid, good p.o. intake Ppx - Low risk for DVT Code - Full Dispo - Admit to medical floor Subjective Patient seen and examined at the bedside. Patient said that he is not febrile anymore even though his he appeared to be hypothermic as 36.4. Neurochecks were done and they were normal so far. Patient reports having neck stiffness. His appetite is poor as well. He denies fever, chills, chest pain, shortness of breath, abdominal pain, frequency, urgency. Review of Systems Review of Systems: All systems reviewed & are unremarkable except as noted in HPI & below Physical Exam Constitutional: WD/WN, vitals as above well developed Eyes: PERRL, conjunctivae normal, anicteric sclerae ENMT: external ear and nose normal, oropharynx normal Neck: Stiffness of the neck. Positive Brudzinski and Kernig sign Respiratory: normal respiratory effort, lungs clear to auscultation Cardiovascular: RRR, no murmur, no edema Gastrointestinal (Abdomen): normal bowel sounds, soft, nontender, no hepatosplenomegaly Musculoskeletal: no cyanosis or clubbing, extremities motor strength 5/5 Skin: no rashes, warm and dry Neurologic: patellar DTR's 2+ bilat, sensation intact Psychiatric: A+Ox3, euthymic affect Lymphatic: no cervical or axillary lymphadenopathy Results & Data Vital Signs (Past 12 Hours) Vital Signs Temp Pulse Resp BP Pulse Ox 01/22/19 07:11 36.4 C L 55 L 18 95/61 L 97 PG Care Time/CCT Total # of Minutes Spent Total Time Spent with Patient: Total time spent is greater than 50% in coordination of care (as documented) at patient's floor/unit and/or counseling patient:
[2019-01-22] MEDS: ACYCLOVIR SOD 800 MG in DEXTROSE 5% 250 ML IV SCH ×2 (16:03→23:32)
[2019-01-22] MEDS: VANCOMYCIN HCL 1,250 MG in SODIUM CHLORIDE 0.9% 250 ML IV SCH (19:56)
[2019-01-23] MEDS: VANCOMYCIN HCL 1,250 MG in SODIUM CHLORIDE 0.9% 250 ML IV SCH ×2 (02:51→11:04)
[2019-01-23 06:16] LABS: Basophils # (auto) 0.03 K/uL (0-0.2); Basophils % (auto) 0.3 %; Eosinophils # (auto) 0.06 K/uL (0-0.5); Eosinophils % (auto) 0.6 %; Hematocrit (blood only) 42.6 % (42-52); Hemoglobin 14.1 g/dL (14.0-18.0); Immature Granulocytes # (auto) 0.03 K/uL (0.00-0.02); Immature Granulocytes % (auto) 0.3 %; Lymphocytes # (auto) 3.58 K/uL (1.2-3.4); Lymphocytes % (auto) 36.1 %; Mean Corpuscular Hemoglobin 28.8 pg (25-34); Mean Corpuscular Hgb Conc 33.1 g/dL (32-36); Mean Corpuscular Volume 87.1 fL (80-100); Mean Platelet Volume 10.9 fL (7.4-10.4); Monocytes # (auto) 0.87 K/uL (0.11-0.59); Monocytes % (auto) 8.8 %; Neutrophils # (auto) 5.34 K/uL (1.4-6.5); Neutrophils % (auto) 53.9 %; Platelet Count 198 K/uL (130-400); RDW Coefficient of Variation 12.7 % (11.5-14.5); RDW Standard Deviation 40.7 fL (36.4-46.3); Red Blood Count 4.89 M/uL (4.7-6.1); White Blood Count 9.91 K/uL (4.8-10.8)
[2019-01-23 06:47] LABS: Albumin Level 3.1 gm/dl (3.4-5.0); BUN Creatinine Ratio 9.8 (10-20); Creatinine Clr Calc Pharmacy 115.2 ml/min; Est GFR (African American) 99.3; Est GFR (Non-African American) 85.7; Potassium 3.9 mmol/L (3.5-5.1)
[2019-01-23 06:50] LABS: Bilirubin,Total 0.5 mg/dl (0.2-1); Globulin 3.2 gm/dl (2.5-4.0); Total Protein 6.3 gm/dl (6.4-8.2)
[2019-01-23] MEDS: ACYCLOVIR SOD 800 MG in DEXTROSE 5% 250 ML IV SCH (08:48)
[2019-01-23] MEDS: cefTRIAXone SODIUM 2,000 MG in DEXTROSE 5% 50 ML IV SCH (10:05)
[2019-01-23] MEDS ORDERED: VANCOMYCIN TROUGH ONE (10:30)
--- NOTE | 2019-01-23 10:31 | Infectious Disease Progress Nt ---
Date of Service January 23, 2019 Assessment & Plan (1) Meningitis: 18-year-old previously healthy male with acute meningitis, most likely viral, enteroviral infection most likely. Should be able to discontinue ceftriaxone, would continue acyclovir but consider transitioning to oral Valtrex until HSV studies are available. Hopefully can be discharged soon. Will follow. Subjective Patient seen in follow-up for possible viral meningitis. Feels somewhat better today, still with mild headache. Neck stiffness has improved. Eating better. No fever. CSF cultures remain negative. Review of Systems Review of Systems: All systems reviewed & are unremarkable except as noted in HPI & below Physical Exam Constitutional: WD/WN, vitals as above comfortable; no acute distress Eyes: PERRL, conjunctivae normal, anicteric sclerae ENMT: external ear and nose normal, oropharynx normal Neck: trachea midline, no thyromegaly neck nontender Respiratory: normal respiratory effort, lungs clear to auscultation normal percussion; does not use accessory muscles Cardiovascular: Rate/Rhythm: regular rate and regular rhythm Heart Sounds: normal S1 and normal S2; no gallop, no murmur and no cardiac rub Vessels: normal peripheral pulses; no JVD Gastrointestinal (Abdomen): normal bowel sounds, soft, nontender, no hepatosplenomegaly Musculoskeletal: no cyanosis or clubbing, extremities motor strength 5/5 Spine: thoracic spine normal to inspection and lumbar spine normal to inspection; no cervical spinal tenderness Skin: no rashes, warm and dry normal turgor; no lesions Neurologic: patellar DTR's 2+ bilat, sensation intact no focal motor deficits Psychiatric: A+Ox3, euthymic affect Orientation: cooperative Lymphatic: no cervical or axillary lymphadenopathy no inguinal lymphadenopathy Results & Data Vital Signs (Past 12 Hours) Vital Signs Temp Pulse Resp BP BP Pulse Ox 01/23/19 07:21 36.8 C 85 18 143/74 H 94 01/22/19 23:34 37.0 C 64 19 139/75 97 PG Care Time/CCT Total # of Minutes Spent Total Time Spent with Patient: Total time spent is greater than 50% in coordination of care (as documented) at patient's floor/unit and/or counseling patient:
--- NOTE | 2019-01-23 10:52 | Hospitalist Progress Note ---
Date of Service January 23, 2019 Assessment & Plan (1) Meningitis: Patient reports only mild headache now. Neck stiffness resolved and fever. Leukocytosis resolved. LP performed in ER with elevated WBCs, normal protein/glucose, Gram stain negative for organisms. Patient is afebrile, hemodynamically stable, non-toxic in appearance, no neurologic deficits. Continue to treat for viral meningitis. Viral culture pending. Lyme disease negative. Continue acyclovir for viral meningitis and on the discharge switch to Valtrex 1 g TID for 7 days prophylactic. Follow up with PCP HSV cx on 01/28/2019 and if positive treat per guidance for viral meningitis. Discussed with Dr. Hnanah infectious diseases. D/c-ed ceftriaxone 2 g IV every 12 hours for possible bacterial meningitis since NO CSF culture is positive. Neurochecks every 4 hours. Blood cultures pending please follow up with PCP on Monday. Pt was on ceftriaxone 2 g IV for 48 hr. Cerebrospinal cultures pending He was given Dexamethasone and Ceftriaxone in ER Discontinued vancomycin, since no bacterial cultures were positive. Tylenol PRN pain Tolerates regular diet DC IV fluid, good p.o. intake Ppx - Low risk for DVT Code - Full Dispo - Pt and his mom requested for pt to be discharged home. Informed patient and mother that blood cultures are still pending and cerebrospinal fluid viral cultures are still pending. Patient would need to have close follow-up with his primary care physician and to request release of information in regard of review of blood cultures and herpes simplex virus cultures that are still pending. Patient and his mother agreed. Patient also agreed to follow-up with general precautions and stay at home until January 28 and after clearance by his PCP he will be able to go back to school. Patient also advised to limit lifting and to gradually increase his exercises in the next 10 days. Subjective Patient seen and examined at the bedside. He reports feeling better today, he reports still a mild headache.Patient said neck stiffness is improved. Patient mother is at the bedside and they were asking if patient can be discharged home. Discussed with Dr. Hannah infectious diseases and he agrees that bacterial cultures are negative and ceftriaxone and vancomycin should be stopped but agrees to continue with Valtrex 1 g p.o. 3 times daily for 7 more days since herpesvirus cultures are still pending for possible viral meningitis. Patient denies fever, chills, chest pain, shortness of breath, abdominal pain, frequency, urgency. P.o. intake improved. CSF cultures remain negative. Patient agrees to follow-up with primary care physician within a 7 days and to follow-up on herpesvirus cultures. Review of Systems Review of Systems: All systems reviewed & are unremarkable except as noted in HPI & below Physical Exam Constitutional: WD/WN, vitals as above well developed Eyes: PERRL, conjunctivae normal, anicteric sclerae ENMT: external ear and nose normal, oropharynx normal Respiratory: normal respiratory effort, lungs clear to auscultation Cardiovascular: RRR, no murmur, no edema Gastrointestinal (Abdomen): normal bowel sounds, soft, nontender, no hepatosplenomegaly Musculoskeletal: no cyanosis or clubbing, extremities motor strength 5/5 Skin: no rashes, warm and dry Neurologic: patellar DTR's 2+ bilat, sensation intact Psychiatric: A+Ox3, euthymic affect Lymphatic: no cervical or axillary lymphadenopathy Results & Data Vital Signs (Past 12 Hours) Vital Signs Temp Pulse Resp BP BP Pulse Ox 01/23/19 07:21 36.8 C 85 18 143/74 H 94 01/22/19 23:34 37.0 C 64 19 139/75 97 PG Care Time/CCT Total # of Minutes Spent Total Time Spent with Patient: Total time spent is greater than 50% in coordination of care (as documented) at patient's floor/unit and/or counseling patient:
--- NOTE | 2019-01-23 12:07 | Discharge Summary ---
Date of Service January 23, 2019 Admission HPI Per Admitting Provider Enrrique Busby is a 18yo C male with no significant past medical history presenting with headache - severe, constant x 3 days associated with neck stiffness, fever, photophobia. He denies visual changes, hearing loss, seizure, numbness/tingling/weakness. No head trauma. No recent travel. He was recently treated for strep throat. No additional complaints - no SOB/cough/abdominal pain/nausea/vomiting/diarrhea/constipation/rash. On arrival to the ER he was found to be afebrile, HD stable. He had an LP performed by the ER attending which showed clear, colorless CSF, 16 WBCs, normal glucose and protein. No RBCs or xanthrochromia. Lyme and flu negative. Gram stain with no organisms. ER Course: Tylenol, Ceftriaxone, Dexamethasone, Benadryl, Magnesium, Prochlorperazine, NSS Principal Diagnosis none Discharge Exam Constitutional WD/WN, vitals as above well developed Eyes PERRL, conjunctivae normal, anicteric sclerae ENMT external ear and nose normal, oropharynx normal Neck trachea midline, no thyromegaly Respiratory normal respiratory effort, lungs clear to auscultation Cardiovascular RRR, no murmur, no edema Gastrointestinal (Abdomen) normal bowel sounds, soft, nontender, no hepatosplenomegaly Musculoskeletal no cyanosis or clubbing, extremities motor strength 5/5 Skin no rashes, warm and dry Neurologic patellar DTR's 2+ bilat, sensation intact Psychiatric A+Ox3, euthymic affect Lymphatic no cervical or axillary lymphadenopathy Discharge Data Allergies Allergy/AdvReac Type Severity Reaction Status Date / Time No Known Allergies Allergy Unverified 01/21/19 16:03 Consultations 01/21/19 16:33 ED Decision to Admit Stat 01/21/19 21:15 Consult Infectious Diseases Routine Ordered Studies 01/21/19 14:12 CT head/brain wo con Stat Hospital Course (1) Meningitis: Patient reports only mild headache now. Neck stiffness resolved and fever. Leukocytosis resolved. LP performed in ER with elevated WBCs, normal protein/glucose, Gram stain negative for organisms. Patient is afebrile, hemodynamically stable, non-toxic in appearance, no neurologic deficits. Continue to treat for viral meningitis. Viral culture pending. Lyme disease negative. Continue acyclovir for viral meningitis and on the discharge switch to Valtrex 1 g TID for 7 days prophylactic. Follow up with PCP HSV cx on 01/28/2019 and if positive treat per guidance for viral meningitis. Discussed with Dr. Hannah infectious diseases. D/c-ed ceftriaxone 2 g IV every 12 hours for possible bacterial meningitis since NO CSF culture is positive. Neurochecks every 4 hours. Blood cultures pending please follow up with PCP on Monday. Pt was on ceftriaxone 2 g IV for 48 hr. Cerebrospinal cultures pending He was given Dexamethasone and Ceftriaxone in ER Discontinued vancomycin, since no bacterial cultures were positive. Tylenol PRN pain Tolerates regular diet DC IV fluid, good p.o. intake Ppx - Low risk for DVT Code - Full Dispo - Pt and his mom requested for pt to be discharged home. Informed patient and mother that blood cultures are still pending and cerebrospinal fluid viral cultures are still pending. Patient would need to have close follow-up with his primary care physician and to request release of information in regard of review of blood cultures and herpes simplex virus cultures that are still pending. Patient and his mother agreed. Patient also agreed to follow-up with general precautions and stay at home until January 28 and after clearance by his PCP he will be able to go back to school. Patient also advised to limit lifting and to gradually increase his exercises in the next 10 days. Total Time Total Time Spent Total Time Spent (In Minutes): over 30 min Discharge Plan Discharge Items Patient Disposition: Home - Self-Care Reason For Visit: MENINGITIS Discharge Diagnosis: Meningitis Condition on Discharge: Good Health Concerns: herpes studies are still pending. Please follow up with your PCP in 7 days so we can release the results.You will continue prophylactically Valtrex 1 g PO TID for 7 days. Please stay at home until Monday01/28/2019. Activity: As commented below Lifting: Gradually increase as tolerated and No more than 5 pounds Lifting Comment: lift no more then 5 lbs for 7 days Non-emergency contact: Primary Care Provider Call non-emergency contact if: you have any medication questions, your symptoms worsen, your pain is not controlled, your pain is worsening, your pain is unusual for you, your pain is concerning for you, you have a fever, your temperature is above 101 and your temperature is above 101.5 Follow-up/Referrals: Tressa Gibson DO [Primary Care Provider] - 01/28/19 8:20 am (Please, follow up at [facility] with Dr. Gibson on MondayJanuary 28 at 8:20 am. *If you need to change this appointment, call the office at [phone].) PCP,NO [Physician] - Diet: Regular Addtl Attending Provider Instructions: Herpes studies are still pending. Please follow up with your PCP in 7 days so we can release the results.You will continue prophylactically Valtrex 1 g PO TID for 7 days. Please stay at home until Monday01/28/2019. Pending Studies at Discharge: Yes Studies:: Herpes Virus studies results are still pending.Blood cultures are pending. Stand-Alone Forms: My [facility] [employer], Smoking Cessation Medications and DC Order Prescriptions: New acetaminophen [Mapap (acetaminophen)] 325 mg Tablet 650 mg PO Q8H PRN (Reason: fever or pain) Qty: 30 RF: 0 ibuprofen 200 mg Tablet 400 mg PO Q6H PRN (Reason: fever or pain) Qty: 20 RF: 0 valacyclovir [Valtrex] 1 gram tablet 1,000 mg PO TID Qty: 21 RF: 0 Discontinued ibuprofen 200 mg Capsule 400 mg PO Q6H RF: 0 Discharge Orders: Discharge Order (Routine); Ordered 01/23/19 Ordered By: Arthur Ward Admission Data Admit Date/Time: 01/21/19 18:38 Attending Provider: Arthur Ward Admit Provider: Ramonita Martines Primary Care Provider: Tressa Gibson Other Providers: Ramonita Martines ; Kee Hannah Other Interventions: Discharge Summary Assessment (RN) Last Done: 01/23/19 11:10
[2019-01-24 19:41] LABS: HSV Type 1 DNA Not Detected (Not Detected); HSV Type 1&2 DNA Source CSF; HSV Type 2 DNA Not Detected (Not Detected)
== END 2019-01-23 13:25 | disposition home or self-care (01) | DRG 76 ==
LOC: ED 12:14 → SUATTDRO 18:38 → 4W 18:38